=== PATIENT | female | born 1940 | race Caucasian/White ===

== ENCOUNTER → 2017-02-10 | Outpatient (CLI) | payer MEDICARE, BC ==
--- NOTE | ~2017-02-10 | MY29 ---
[facility] RADIOLOGY TEXT RESULTS PATIENT: IMMANUEL LLAMAS LOCATION: [facility] : 38 UNIT #: [id number] AGE: [address]: Yue Patel MD SEX: F ORDER DR: [id number] [facility] [address] [place], [place] [address] [id number] O MR#: [id number] Acc #: [id number] NAME: IMMANUEL LLAMAS : 1940 SEX: F STUDY DATE/TIME: 02/10/2017 13:40 UNIT: [facility] ROOM: STUDY DESCRIPTION: MY [facility] SCREENING W/ CAD BILAT Attending Physician: Yue Patel M.D. Referring Physician: Yue Patel M.D. Ordering Physician: Yue Patel M.D. Primary Care Physician: Yue Patel M.D. MEDICAL IMAGING REPORT This report is preliminary unless electronic signature is present EXAM Digital screening mammogram with CAD. INDICATIONS Routine screening. PROCEDURE Bilateral CC and MLO views obtained on a digital mammography unit. FDA-approved CAD device utilized. COMPARISON 12/10/2013 FINDINGS Scattered fibroglandular density. No dominant mass or suspicious calcification. 8 mm benign appearing mass in the upper/outer quadrant of the left breast is unchanged. IMPRESSION Benign screening mammogram. Screen interval in one year suggested. Patients over the age of 40 are entered into a reminder system with target due date for the next mammogram. A result letter will also be sent to the patient. BIRADS: 2 Benign findings. Dictated by... Martínez Main M.D. THIS IS AN ELECTRONICALLY VERIFIED REPORT Martínez Main M.D. at 02/12/2017 7:12 AM [facility] RADIOLOGY TEXT RESULTS PATIENT: IMMANUEL LLAMAS LOCATION: [facility] : 38 UNIT #: [id number] AGE: [address]: Yue Patel MD SEX: F ORDER DR: Anne-Marie TD: 02/11/2017 18:12 JOB #: [id number] MEDICAL IMAGING REPORT Page 1 of 1 COPY
== END | disposition home or self-care (01) ==
LOC: CWCC 01-27 11:15
DX: Z12.31 Encounter for screening mammogram for malignant neoplasm of breast (principal)
CPT/HCPCS: G0202